=== PATIENT | male | born 1935 | race African-American/Black ===

== ENCOUNTER 2023-03-27 20:49 | Inpatient (IN) | payer MEDICARE, BC ==
[2023-03-27 21:27] LABS: #Eosinphils 0.1 10x3/uL (0.0-0.5); #Monocytes 0.3 10x3/uL (0.0-1.1); #Neutrophils 4.8 10x3/uL (1.5-8.4); %Basophils 0.3 % (0.0-2.0); %Eosinophils 1.1 % (0.0-6.0); %Lymphocytes 18.2 % (18.0-47.0); %Monocytes 5.2 % (0.0-10.0); Hematocrit 38.1 % (38.8-50.0); Hemoglobin 12.3 g/dL (13.5-17.5); Mean Corpuscular HGB CONC 32.3 g/dL (32.0-36.0); Mean Corpuscular Hemoglobin 29.3 pg (27.0-33.0); Mean Corpuscular Volume 90.7 fl (81.2-95.1); Mean Platelet Volume 11.6 fl (7.4-10.4); Platelet Count 253 10x3/uL (150-450); RBC Distribution Width 14.7 % (11.5-14.5); White Blood Cell (WBC) Count 6.3 10x3/uL (3.5-10.5)
[2023-03-27 21:38] LABS: ALT (SGPT) 12 U/L (8-55); AST (SGOT) 18 U/L (5-34); Albumin 3.4 g/dL (3.4-4.8); Alkaline Phosphatase 87 U/L (40-110); Anion Gap 14 mmol/L (10-20); BUN (Urea Nitrogen) 22 mg/dL (8.4-25.7); Bilirubin, Total 0.8 mg/dL (0.2-1.2); Calc. Creatinine Clearance 0 mL/min (70-130); Calcium 9.7 mg/dL (7.8-10.44); Carbon Dioxide 22 mmol/L (23-31); Chloride 109 mmol/L (98-107); Estimated GFR 47; Glucose 120 mg/dL (83-110); Magnesium 1.7 mg/dL (1.6-2.6); Potassium 4.3 mmol/L (3.5-5.1); Protein, Total 7.4 g/dL (5.8-8.1); Sodium 141 mmol/L (136-145)
[2023-03-27 21:42] LABS: Troponin I 0.085 ng/mL (< 0.028)
[2023-03-27 21:55] LABS: Lipase Less than 4 U/L (8-78)
[2023-03-27 22:11] LABS: SARS-CoV-2 NAA Rapid Test Not Detected (NotDetected)
[2023-03-27] MEDS ORDERED: Acetaminophen 325 MG TAB PO PRN (22:50)
[2023-03-27] MEDS ORDERED: Ondansetron PF 4 MG/2 ML Vial IVP PRN (22:50)
[2023-03-27] MEDS ORDERED: Furosemide 40 MG/4 ML VIAL ONE (23:01)
[2023-03-27] MEDS ORDERED: Vancomycin 1 GM VIAL ONE (23:01)
[2023-03-27] MEDS ORDERED: Cefepime 2 GM VIAL ONE (23:02)
[2023-03-27 23:28] LABS: ALV-art Gradient 63.175 mmHg (0-20); Actual Bicarbonate (HCO3a) 24.2 mEq/L (22-28); Base Excess (BEa) 0.4 mEq/L (-2.0 to +3.0); CO2 Tension 36.1 mmHg (35.0-45.0); Calcium, Ionized (arterial) 1.25 mmol/L (1.12-1.30); Carboxyhemoglobin (COHb) 0.6 gm% (0.0-3.0); Hematocrit-ABG 36 % (42.0-52.0); Hemoglobin (Hb) 12.4 g/dL (14.0-18.0); O2 Tension (PaO2), arterial 105.6 mmHg (> 60.0); Potassium - ABG Lab 3.85 mmol/L (3.70-5.30); Puncture Site RRA; pH, Arterial 7.444 (7.35-7.45)
[2023-03-27 23:50] LABS: Bilirubin Neg (Negative); Blood, Urine 10 (Negative); Clarity Clear (Clear); Glucose, Urine (Dipstick) Normal (Negative); Ketone, Urine Negative (Negative); Leukocyte Negative (Negative); Nitrite Negative (Negative); Protein, Urine (Dipstick) 30 mg/dl (Neg-Trace); Specific Gravity, Urine 1.015 (1.005-1.030); Urobilinogen Normal mg/dL (Less than 2)
[2023-03-28] LABS: Bacteria/HPF None Seen HPF (None Seen); CAUTI Indications for Culture Alt mental st,lethar; RBC/HPF 0-3 HPF (0-3); Squamous Epithelial 0-3 HPF (0-3); WBC/HPF 0-3 HPF (0-3)
[2023-03-28 00:01] LABS: Urine Culture Reflex No No
[2023-03-28 01:03] LABS: Troponin I 0.057 ng/mL (< 0.028)
[2023-03-28 04:19] LABS: Anion Gap 13 mmol/L (10-20); BUN (Urea Nitrogen) 21 mg/dL (8.4-25.7); Calc. Creatinine Clearance 54 mL/min (70-130); Calcium 9.3 mg/dL (7.8-10.44); Carbon Dioxide 21 mmol/L (23-31); Chloride 110 mmol/L (98-107); Estimated GFR 59; Glucose 110 mg/dL (83-110); Potassium 3.6 mmol/L (3.5-5.1); Sodium 140 mmol/L (136-145)
[2023-03-28 04:22] LABS: #Eosinphils 0.1 10x3/uL (0.0-0.5); #Monocytes 0.3 10x3/uL (0.0-1.1); #Neutrophils 3.5 10x3/uL (1.5-8.4); %Basophils 0.4 % (0.0-2.0); %Eosinophils 1.6 % (0.0-6.0); %Lymphocytes 22.8 % (18.0-47.0); %Monocytes 5.5 % (0.0-10.0); %Neutrophils 69.5 % (40.0-75.0); Hematocrit 34.3 % (38.8-50.0); Hemoglobin 10.9 g/dL (13.5-17.5); Mean Corpuscular HGB CONC 31.8 g/dL (32.0-36.0); Mean Corpuscular Hemoglobin 29.1 pg (27.0-33.0); Mean Corpuscular Volume 91.5 fl (81.2-95.1); Mean Platelet Volume 12.4 fl (7.4-10.4); Platelet Count 239 10x3/uL (150-450); RBC Distribution Width 14.8 % (11.5-14.5); Red Blood Cell (RBC) Count 3.75 10x6/uL (4.32-5.72); White Blood Cell (WBC) Count 5.1 10x3/uL (3.5-10.5)
[2023-03-28 04:27] LABS: Troponin I 0.073 ng/mL (< 0.028)
[2023-03-28] MEDS ORDERED: Potassium Bicarbonate/Cit Ac 20 MEQ TAB PO SCH (05:45)
[2023-03-28] MEDS ORDERED: Potassium Chloride 20 MEQ in Premix Bag 1 BAG IVPB SCH (06:00)
[2023-03-28 06:03] LABS: Magnesium 1.6 mg/dL (1.6-2.6)
[2023-03-28] MEDS: Furosemide 20 MG/2 ML VIAL SLOW IVP SCH ×2 (06:45→14:30)
[2023-03-28 06:53] VITALS: BMI 25.7
[2023-03-28] MEDS ORDERED: FLU VACC QS2023(65UP)/MF59C/PF 60 MCG/0.5 ML SYRINGE IM ONE (09:00)
[2023-03-28] MEDS ORDERED: Apixaban 5 MG TAB PO SCH (09:00)
[2023-03-28] MEDS: Polyethylene Glycol 3350 17 GM Packet PO SCH (09:19)
[2023-03-28] MEDS: Senokot S 8.6-50 MG TAB PO SCH ×2 (09:19→20:50)
[2023-03-28] MEDS: Cefepime 1 GM in Sodium Chloride 0.9% 100 ML IVPB SCH ×2 (10:53→22:20)
[2023-03-28] MEDS ORDERED: Magnesium 2 GM/50 ML(in water) 2 GM in Premix Bag 1 BAG IVPB SCH (11:45)
[2023-03-28] MEDS ORDERED: Metoprolol Tartrate 5 MG/5 ML VIAL IVP SCH (12:00)
[2023-03-28] MEDS: Metoprolol Tartrate 50 MG TAB PO SCH (20:50)
[2023-03-28] MEDS ORDERED: VANCOMYCIN 1.25 GM/250 ML BAG 1.25 GM in Premix Bag 1 BAG IVPB SCH (23:59)
[2023-03-29] MEDS ORDERED: diphenhydrAMINE 25 MG CAP ONE (03:50)
[2023-03-29 03:59] LABS: Anion Gap 15 mmol/L (10-20); BUN (Urea Nitrogen) 21 mg/dL (8.4-25.7); Calc. Creatinine Clearance 57 mL/min (70-130); Carbon Dioxide 22 mmol/L (23-31); Chloride 109 mmol/L (98-107); Estimated GFR 64; Glucose 94 mg/dL (83-110); Potassium 3.5 mmol/L (3.5-5.1); Sodium 142 mmol/L (136-145)
[2023-03-29 04:00] LABS: Calcium 9.3 mg/dL (7.8-10.44); Magnesium 1.8 mg/dL (1.6-2.6)
[2023-03-29 04:07] LABS: #Eosinphils 0.1 10x3/uL (0.0-0.5); #Monocytes 0.4 10x3/uL (0.0-1.1); #Neutrophils 2.9 10x3/uL (1.5-8.4); %Basophils 0.4 % (0.0-2.0); %Eosinophils 2.5 % (0.0-6.0); %Lymphocytes 23.6 % (18.0-47.0); %Monocytes 8.3 % (0.0-10.0); %Neutrophils 64.8 % (40.0-75.0); Hematocrit 35.5 % (38.8-50.0); Hemoglobin 11.4 g/dL (13.5-17.5); Mean Corpuscular HGB CONC 32.1 g/dL (32.0-36.0); Mean Corpuscular Hemoglobin 29.5 pg (27.0-33.0); Mean Corpuscular Volume 91.7 fl (81.2-95.1); Mean Platelet Volume 11.9 fl (7.4-10.4); Platelet Count 220 10x3/uL (150-450); RBC Distribution Width 14.8 % (11.5-14.5); Red Blood Cell (RBC) Count 3.87 10x6/uL (4.32-5.72); White Blood Cell (WBC) Count 4.5 10x3/uL (3.5-10.5)
[2023-03-29] MEDS: diphenhydrAMINE 25 MG CAP PO PRN (04:23)
[2023-03-29] MEDS: Furosemide 20 MG/2 ML VIAL SLOW IVP SCH ×2 (06:21→17:29)
[2023-03-29] MEDS: Polyethylene Glycol 3350 17 GM Packet PO SCH (08:10)
[2023-03-29] MEDS: Tamsulosin HCl 0.4 MG CAP PO SCH (08:10)
[2023-03-29] MEDS: Senokot S 8.6-50 MG TAB PO SCH ×2 (08:10→21:18)
[2023-03-29] MEDS: Metoprolol Tartrate 50 MG TAB PO SCH ×2 (08:10→21:19)
[2023-03-29] MEDS ORDERED: Spironolactone 25 MG TAB PO SCH ×2 (10:59→17:00)
[2023-03-29] MEDS ORDERED: Potassium Chloride 20 MEQ TAB PO SCH ×2 (11:00→17:00)
[2023-03-29] MEDS ORDERED: Furosemide 20 MG/2 ML VIAL SLOW IVP SCH (17:00)
[2023-03-29] MEDS: Apixaban 5 MG TAB PO SCH (21:19)
[2023-03-30 04:31] LABS: #Eosinphils 0.1 10x3/uL (0.0-0.5); #Monocytes 0.4 10x3/uL (0.0-1.1); #Neutrophils 3.3 10x3/uL (1.5-8.4); %Basophils 0.2 % (0.0-2.0); %Eosinophils 2.1 % (0.0-6.0); %Lymphocytes 25.4 % (18.0-47.0); %Monocytes 7.9 % (0.0-10.0); %Neutrophils 64.2 % (40.0-75.0); Hematocrit 38.3 % (38.8-50.0); Hemoglobin 12.2 g/dL (13.5-17.5); Mean Corpuscular HGB CONC 31.9 g/dL (32.0-36.0); Mean Corpuscular Hemoglobin 29.4 pg (27.0-33.0); Mean Corpuscular Volume 92.3 fl (81.2-95.1); Mean Platelet Volume 11.5 fl (7.4-10.4); Platelet Count 188 10x3/uL (150-450); RBC Distribution Width 14.8 % (11.5-14.5); Red Blood Cell (RBC) Count 4.15 10x6/uL (4.32-5.72); White Blood Cell (WBC) Count 5.2 10x3/uL (3.5-10.5)
[2023-03-30 04:38] LABS: Anion Gap 15 mmol/L (10-20); BUN (Urea Nitrogen) 24 mg/dL (8.4-25.7); Calc. Creatinine Clearance 52 mL/min (70-130); Calcium 9.8 mg/dL (7.8-10.44); Carbon Dioxide 24 mmol/L (23-31); Chloride 108 mmol/L (98-107); Estimated GFR 59; Glucose 98 mg/dL (83-110); Magnesium 1.7 mg/dL (1.6-2.6); Potassium 3.7 mmol/L (3.5-5.1); Sodium 143 mmol/L (136-145)
[2023-03-30] MEDS: Furosemide 20 MG/2 ML VIAL SLOW IVP SCH (06:00)
[2023-03-30] MEDS: Polyethylene Glycol 3350 17 GM Packet PO SCH (08:34)
[2023-03-30] MEDS: Apixaban 5 MG TAB PO SCH ×2 (08:38→20:51)
[2023-03-30] MEDS: Tamsulosin HCl 0.4 MG CAP PO SCH (08:38)
[2023-03-30] MEDS: Spironolactone 25 MG TAB PO SCH (08:38)
[2023-03-30] MEDS: Metoprolol Tartrate 50 MG TAB PO SCH ×2 (08:38→20:50)
[2023-03-30] MEDS: Senokot S 8.6-50 MG TAB PO SCH ×2 (08:38→20:51)
[2023-03-30] MEDS ORDERED: Potassium Chloride 20 MEQ TAB PO SCH (10:00)
[2023-03-30] MEDS ORDERED: Magnesium 2 GM/50 ML(in water) 2 GM in Premix Bag 1 BAG IVPB SCH (10:00)
[2023-03-30] MEDS ORDERED: Metoprolol Tartrate 25 MG TAB PO SCH (11:00)
[2023-03-30] MEDS: Furosemide 20 MG TAB PO SCH (13:41)
[2023-03-30] MEDS: diphenhydrAMINE 25 MG CAP PO PRN (23:08)
[2023-03-31] MEDS: Apixaban 5 MG TAB PO SCH ×2 (08:36→21:33)
[2023-03-31] MEDS: Furosemide 20 MG TAB PO SCH ×2 (08:36→13:58)
[2023-03-31] MEDS: Metoprolol Tartrate 50 MG TAB PO SCH ×2 (08:36→21:33)
[2023-03-31] MEDS: Spironolactone 25 MG TAB PO SCH (08:36)
[2023-03-31] MEDS: Tamsulosin HCl 0.4 MG CAP PO SCH (08:36)
[2023-03-31] MEDS: Senokot S 8.6-50 MG TAB PO SCH ×2 (08:36→21:33)
[2023-03-31] MEDS: Polyethylene Glycol 3350 17 GM Packet PO SCH (08:37)
[2023-03-31 10:40] LABS: Anion Gap 12 mmol/L (10-20); BUN (Urea Nitrogen) 23 mg/dL (8.4-25.7); Calc. Creatinine Clearance 66 mL/min (70-130); Calcium 9.2 mg/dL (7.8-10.44); Carbon Dioxide 24 mmol/L (23-31); Chloride 109 mmol/L (98-107); Estimated GFR 77; Glucose 114 mg/dL (83-110); Sodium 141 mmol/L (136-145)
[2023-03-31 12:11] LABS: Magnesium 1.8 mg/dL (1.6-2.6)
[2023-03-31] MEDS ORDERED: Magnesium 2 GM/50 ML(in water) 2 GM in Premix Bag 1 BAG IVPB SCH (13:00)
[2023-03-31] MEDS ORDERED: Magnesium 2 GM/50 ML BAG (IN WATER) ONE (13:57)
[2023-04-01 04:33] LABS: Anion Gap 10 mmol/L (10-20); BUN (Urea Nitrogen) 27 mg/dL (8.4-25.7); Calc. Creatinine Clearance 55 mL/min (70-130); Calcium 9.1 mg/dL (7.8-10.44); Carbon Dioxide 24 mmol/L (23-31); Chloride 110 mmol/L (98-107); Estimated GFR 62; Glucose 126 mg/dL (83-110); Magnesium 1.8 mg/dL (1.6-2.6); Potassium 4.4 mmol/L (3.5-5.1); Sodium 140 mmol/L (136-145)
[2023-04-01 07:05] VITALS: BP 158/88; TEMP 97.6
[2023-04-01] MEDS: Furosemide 20 MG TAB PO SCH (08:18)
[2023-04-01] MEDS: Spironolactone 25 MG TAB PO SCH (08:18)
[2023-04-01] MEDS: Metoprolol Tartrate 50 MG TAB PO SCH (08:18)
[2023-04-01] MEDS: Senokot S 8.6-50 MG TAB PO SCH (08:18)
[2023-04-01] MEDS: Tamsulosin HCl 0.4 MG CAP PO SCH (08:18)
[2023-04-01] MEDS: Apixaban 5 MG TAB PO SCH (08:18)
[2023-04-01] MEDS: Polyethylene Glycol 3350 17 GM Packet PO SCH (08:19)
== END 2023-04-01 10:43 | DRG 280 ==
LOC: CSHERS 20:49 → CSHIMCU 22:20 → CSHTELE 03-29 12:09
PROVIDERS: ADMIT Internal Medicine; ATTEND Internal Medicine
PROC: 4A033R1 Measurement of Arterial Saturation, Peripheral, Percutaneous Approach (ICD-10-PCS; 2023-03-27)
PROC: 5A09357 Assistance with Respiratory Ventilation, Less than 24 Consecutive Hours, Continuous Positive Airway Pressure (ICD-10-PCS; principal; 2023-03-28)
DX: I11.0 Hypertensive heart disease with heart failure (principal); I50.33 Acute on chronic diastolic (congestive) heart failure; I21.A1 Myocardial infarction type 2; J96.21 Acute and chronic respiratory failure with hypoxia; N17.9 Acute kidney failure, unspecified; G93.40 Encephalopathy, unspecified; I48.20 Chronic atrial fibrillation, unspecified; I48.92 Unspecified atrial flutter; I25.10 Atherosclerotic heart disease of native coronary artery without angina pectoris; N40.0 Benign prostatic hyperplasia without lower urinary tract symptoms; M10.9 Gout, unspecified; E78.00 Pure hypercholesterolemia, unspecified; I35.0 Nonrheumatic aortic (valve) stenosis; Z20.822 Contact with and (suspected) exposure to COVID-19; F03.90 Unspecified dementia, unspecified severity, without behavioral disturbance, psychotic disturbance, mood disturbance, and anxiety; Z95.5 Presence of coronary angioplasty implant and graft; Z90.49 Acquired absence of other specified parts of digestive tract; Z98.890 Other specified postprocedural states
CPT/HCPCS: 36415; 36600; 71045; 74176; 80048; 80053; 81001; 82805; 83690; 83735; 83880; 84443; 84484; 85025; 90471; 90694; 93005; 94660; 94760; 94762; 96374; 96375; G0008; J0692; J1650; J1940; J3370; J3475; J3480; J3490